=== PATIENT | male | born 1960 | race African-American/Black ===

== ENCOUNTER 2020-05-23 15:15 | Emergency (ER) | payer OTHER ==
[2020-05-23 15:39] VITALS: TEMP 98.5; BMI 25.4
[2020-05-23] MEDS ORDERED: SODIUM CHLORIDE 1,000 ML IV STA (16:26)
[2020-05-23 18:08] LABS: BASO % 0.3 % (0-2.0); EOS % 0.4 % (0-4.5); HEMATOCRIT 40.7 % (35.4-49); HEMOGLOBIN 13.5 GM/dL (11.7-16.9); LYMPH % 15.5 % (8-40); MCH 26.9 pg (25.7-33.7); MCHC 33.2 g/dl (32.0-35.9); MEAN CELL VOLUME 80.9 fl (80-96); MEAN PLT VOLUME 9.1 fl (7.5-11.1); MONO % 8.1 % (3.8-10.2); NEUT % 75.7 % (42.8-82.8); PLATELET COUNT 256 K/MM3 (134-434); RBC 5.03 M/mm3 (4.00-5.60); RDW 14.6 % (11.9-15.9); WHITE BLOOD COUNT 7.7 K/mm3 (4.0-10.0)
[2020-05-23 18:22] LABS: EPI CELLS 12 /uL (0-25.1); HYALINE CASTS 2 /uL (0-3.1); PH,URINE 5.5 (5.0-8.0); URINE APPEARANCE CLEAR; URINE BACTERIA 94 /uL (0-1359); URINE BILIRUBIN NEGATIVE (NEGATIVE); URINE COLOR YELLOW; URINE GLUCOSE (UA) 3+ (NEGATIVE); URINE KETONE NEGATIVE (NEGATIVE); URINE LEUK ESTERASE NEGATIVE (NEGATIVE); URINE NITRITE NEGATIVE (NEGATIVE); URINE PROTEIN TRACE (NEGATIVE); URINE RBC 65 /uL (0-23.9); URINE UROBILINOGEN 0.2 mg/dL (0.2-1.0); URINE WBC 29 /uL (0-25.8)
[2020-05-23 18:25] LABS: CHLORIDE 96 mmol/L (98-107); POTASSIUM 4.4 mmol/L (3.5-5.1); SODIUM 133 mmol/L (136-145)
[2020-05-23 18:28] LABS: ANION GAP 8 MMOL/L (8-16); BLOOD UREA NITROGEN 17.5 mg/dL (7-18); CALCIUM 9.4 mg/dL (8.5-10.1); CO2 28 mmol/L (21-32); GLUCOSE,RANDOM 359 mg/dL (74-106)
[2020-05-23 18:31] LABS: CREATININE 1.3 mg/dL (0.55-1.3); SGOT/AST 9 U/L (15-37); SGPT/ALT 16 U/L (13-61)
[2020-05-23 18:32] LABS: BILIRUBIN,TOTAL 0.7 mg/dL (0.2-1)
[2020-05-23 18:33] LABS: TOT PROT 7.7 g/dl (6.4-8.2)
[2020-05-23 18:34] LABS: ALK PHOS 70 U/L (45-117)
[2020-05-23 19:39] VITALS: BP 156/94; PULSE 88
== END 2020-05-23 19:39 | disposition home or self-care (01) ==
LOC: JER 15:15
PROC: 3E0337Z Introduction of Electrolytic and Water Balance Substance into Peripheral Vein, Percutaneous Approach (ICD-10-PCS; principal; 2020-05-23)
DX: R73.9 Hyperglycemia, unspecified (principal); R42 Dizziness and giddiness
CPT/HCPCS: 36415; 80053; 81003; 82010; 82550; 82962; 84484; 85025; 93005; 93010; 99284-25